=== PATIENT | male | born 1995 | race Caucasian/White ===

== ENCOUNTER 2018-11-04 22:22 | Emergency (ER) | payer MEDICAID, OTHER ==
[~2018-11-04] VITALS: Ht 177.8 cm; Wt 77.1 kg
[~2018-11-04 22:22] MED LIST: ALBU17AE3 IH; AMOX500C2 PO; AMOX500T2 PO; CETI10TA17 PO; CLON1TAB69 PO; CODE-54 PO; FAMO-119 PO; GUAN2TAB PO; HYDR-34 PO; LAMO100T69 PO; LAMO150T3 PO; LAMO200T14 PO; LITH300C PO; MINO100C2 PO; NAPR550T PO; OSLT75C PO; PALI6TAB2 PO; PRD20T PO; SULF1TAB7 PO; TOPI50TA2 PO; TRAZ-144 PO; TRIH2TAB2 PO
--- OUTSIDE RECORDS SUMMARY | 2018-11-04 22:27 | XMS REPORT ---
Author Author RANDI SHELIA Organization [facility] Address [address] [place] [address] Care Team Providers Care Flatwork Washer Name Role Phone SHELIA BRYAN Unavailable PROBLEMS Type Condition ICD9-CM Code [id number] Code Onset Dates Condition Status SNOMED Code Problem Attention deficit disorder of childhood with hyperactivity 314.01 Active 685988759 Problem Pain in joint, shoulder region 719.41 Active 803748915 Problem Autistic disorder, current or active state 299.00 Active 847795994 Problem Hypertrophy of breast 611.1 Active 730930719 Problem Nausea with vomiting 787.01 Active 30263419 Problem 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 39083372 Problem Routine general medical examination at health care facility V70.0 Active 749144928 Problem Pain in joint, forearm 719.43 Active 989105601 Problem Other acute sinusitis 461.8 Active 63054426 Problem Other diseases of nasal cavity and sinuses 478.19 Active 911133569 Problem Sebaceous cyst 706.2 Active 615122775 Problem Acute pharyngitis 462 Active 269951547 Problem Other and unspecified cerebral laceration and contusion, without mention of open intracranial wound, unspecified state of consciousness 851.80 Active 404370476 Problem Lipoma of other specified sites 214.8 Active 12335481 Problem Pilonidal cyst without mention of abscess 685.1 Active 34181466 Problem Bipolar disorder, unspecified 296.80 Active 75282009 Problem Intermittent explosive disorder 312.34 Active 17791505 Problem Other specified pervasive developmental disorders, current or active state 299.80 Active 66500830 Problem Anal or rectal pain 569.42 Active 49441209 Problem Oppositional defiant disorder 313.81 Active 86501261 ALLERGIES Substance Reaction Event Type Date Status N.K.D.A. Unknown Non Drug Allergy Aug, Unknown SOCIAL HISTORY No smoking Hx information available PLAN OF CARE VITAL SIGNS Height 67 in 2016-09-20 Weight 189.6 lbs 2016-09-20 Temperature 98.4 degrees Fahrenheit 2016-09-20 Heart Rate 88 bpm 2016-09-20 Respiratory Rate 18 2016-09-20 BMI 29.69 kg/m2 2016-09-20 Blood pressure systolic 122 mmHg 2016-09-20 Blood pressure diastolic 78 mmHg 2016-09-20 MEDICATIONS Medication Instructions Dosage Frequency Start Date End Date Duration Status Zithromax Z-Mike 250 MG Orally Once a day 2 tablets on the first day, then 1 tablet daily for 4 days 24h Aug, Sep, 5 day(s) Active RESULTS Name Result Date Reference Range STREP A (IN HOUSE) 2016-09-20 STREP A Positive Control + Lot # [id number] Exp date 01/2018 PROCEDURES Procedure Date Ordered Related Diagnosis Body Site Office Visit, Est Pt., Level 3 Sep 20, 2016 IMMUNIZATIONS No Known Immunizations
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
[2018-11-04] MEDS ORDERED: RX-OSELTAMIVIR 75 MG (TAMIFLU) BOX OF 10 PO STA (23:18)
[2018-11-04] MEDS ORDERED: BENZ100C18 PO (23:18)
[2018-11-04] MEDS ORDERED: GUAI1TBM19 PO (23:18)
--- NOTE | 2018-11-04 23:18 | ED Cough/URI ---
General Chief Complaint: Fever-Adult/Adol Stated Complaint: BACK PAIN/CHILLS/COUGH Allergies and Home Medications Allergies Coded Allergies: Tetracyclines (Verified Allergy, Mild, 12/08/15) clindamycin (Verified Allergy, Mild, 12/08/15) paliperidone (Verified Allergy, Mild, 12/08/15) risperidone (Unverified Allergy, Unknown, CAUSED BREAST TISSUE TO ENLARGE , 08/26/14) sulfamethoxazole (Unverified Allergy, Unknown, RASH, 08/26/14) trimethoprim (Unverified Allergy, Unknown, RASH, 08/26/14) Home Medications Amoxicillin 500 Mg Capsule, 500 MG PO TID Prescribed by: RADHA RONQUILLO on 06/19/16 0732 Hydrocodone Bit/Acetaminophen 1 Each Tablet, 1 EACH PO Q6H Prescribed by: RADHA RONQUILLO on 06/19/16 0732 Past Mkkyqad-Indzne-Lmdsgf Hx Patient Social History Recent Foreign Travel: No Contact w/Someone Who Travel: No Recent Hopitalizations: No Immunizations Up To Date Date of Influenza Vaccine: Jul 25, 2013 Past Medical History Asthma Heart Murmur Seizure Disorder, Traumatic Brain Injury Reproductive Disorders: No Polyps PTSD, Bipolar, Personality Disorder Family Medical History No Pertinent Family Hx Physical Exam Capillary Refill : Height: 5'10" Weight: 170lbs. oz. 77.745274ix; 25.06 BMI Method:Estimated Progress/Results/Core Measures Suspected Sepsis SIRS Temperature: Pulse: Respiratory Rate: Blood Pressure / Mean: Results/Orders Micro Results Microbiology 11/04/18 Influenza Types A,B Antigen ([facility]) - Final, Complete My Orders Orders - OSITO CHAVARRIA DO Influenza A And B Antigens (11/04/18 22:31) Vital Signs/I&O Capillary Refill : Departure Impression Primary Impression: Influenza-like illness Disposition: HOME, SELF-CARE Condition: Stable Departure-Patient Inst. Referrals: [facility] (PCP/Family) Primary Care Physician Patient Instructions: Cough, Runny Nose, and the Common Cold (DC), Flu, Adult ( DC), VIRAL RESP ILLNESS-ADULT Add. Discharge Instructions: LOTS OF CLEAR LIQUIDS--WATER, BROTH, JELLO, GATORADE TYLENOL 1 GRAM/ MOTRIN 800 MG 4 TIMES A DAY FOR PAIN OR FEVER FOLLOW UP WITH OF VERN IN 3-4 DAYS IF NO BETTER All discharge instructions reviewed with patient and/or family. Voiced understanding. Scripts Guaifenesin/Dextromethorphan (Mucinex Dm ER 1,200-60 mg Tab) 1 Each Tbmp.12hr 1 EACH PO BID for 10 Days, #20 EA Prov: OSITO CHAVARRIA DO 11/04/18 Benzonatate (TESSALON PERLES) 100 Mg Capsule 1-2 TAB PO TID for Cough, #30 CAP Prov: OSITO CHAVARRIA DO 11/04/18 OSITO CHAVARRIA DO Nov 04, 2018 23:18
[2018-11-04] MEDS ORDERED: RX-OSELTAMIVIR 75 MG (TAMIFLU) BOX OF 10 PO ONE (23:19)
[2018-11-04 23:25] VITALS: BP 138/92
== END 2018-11-04 23:26 | disposition home or self-care (01) ==
LOC: EDUNIT# 22:22 → ER 22:24
DX: J11.1 Influenza due to unidentified influenza virus with other respiratory manifestations (principal); J45.909 Unspecified asthma, uncomplicated; G40.909 Epilepsy, unspecified, not intractable, without status epilepticus; F43.10 Post-traumatic stress disorder, unspecified; F31.9 Bipolar disorder, unspecified; F60.9 Personality disorder, unspecified; Z87.820 Personal history of traumatic brain injury; Z86.010 Personal history of colon polyps; Z88.1 Allergy status to other antibiotic agents; Z88.2 Allergy status to sulfonamides; Z88.8 Allergy status to other drugs, medicaments and biological substances
CPT/HCPCS: 87804

== ENCOUNTER 2020-07-01 14:24 | Emergency (ER) | payer MEDICAID ==
[~2020-07-01 14:24] MED LIST changes: +BENZ100C18 PO; +GUAI1TBM19 PO; -MINO100C2 PO; +MINO100C5 PO
--- NOTE | 2020-07-01 14:40 | NUR ---
ATTEMPT TO CALL PT'S FRIENDS PHONE THAT PT WAS USING ET IT WENT STRAIT TO [employer]. WENT TO PARKING LOT AND SEARCHED AND PT COULD NOT BE FOUND. DR RONQUILLO NOTIFIED.
--- NOTE | 2020-07-01 14:50 | NUR ---
ATTEMPT TO CALL PT'S FRIEND CELL PHONE THAT WAS PROVIDED ET IT WENT TO VOICE MAIL.
== END 2020-07-01 14:40 | disposition left against medical advice (07) ==
LOC: EDUNIT# 14:24 → ER 14:25
DX: R05 Cough (principal); R50.9 Fever, unspecified; R06.02 Shortness of breath

== ENCOUNTER 2021-08-15 20:12 | Emergency (ER) | payer MEDICAID ==
[~2021-08-15] VITALS: Ht 170 cm; Wt 113.0 kg
--- NOTE | 2021-08-15 21:23 | ED Cough/URI ---
General Chief Complaint: COVID19 Suspect/Confirmed Stated Complaint: ORTIZ,COUGH,FEVER,SORE THROAT Nursing Triage Note: PERSISTANT COUGH/RUNNY NOSE X3 DAYS, REPORTS FEVER TONIGHT Source: patient Exam Limitations: no limitations History of Present Illness Date Seen by Provider: Aug 15, 2021 Time Seen by Provider: 21:04 Initial Comments This is a well-appearing 26-year-old male who presented to the ER with complaints of cough, nasal congestion, fever for the past 3 to 4 days. He did have his COVID vaccines in February of this year. No known ill contacts. Allergies and Home Medications Allergies Coded Allergies: Tetracyclines (Verified Allergy, Mild, 12/08/15) clindamycin (Verified Allergy, Mild, 12/08/15) paliperidone (Verified Allergy, Mild, 12/08/15) risperidone (Unverified Allergy, Unknown, CAUSED BREAST TISSUE TO ENLARGE, 08/26/14) sulfamethoxazole (Unverified Allergy, Unknown, RASH, 08/26/14) trimethoprim (Unverified Allergy, Unknown, RASH, 08/26/14) Patient Home Medication List Home Medication List Reviewed: Yes Methylprednisolone (Methylprednisolone Dose Pack) 4 Mg Tab.ds.pk, 4 MG PO UD Prescribed by: DWAYNE ANTHONY on 08/15/212157 Discontinued Medications Amoxicillin (Amoxicillin) 500 Mg Capsule, 500 MG PO TID Discontinued Reason: No Longer Taking Prescribed by: RADHA RONQUILLO on 06/19/16731 Last Action: Discontinued Benzonatate (Tessalon Perles) 100 Mg Capsule, 1-2 TAB PO TID Discontinued Reason: No Longer Taking Prescribed by: OSITO CHAVARRIA on 11/04/182317 Last Action: Discontinued Guaifenesin/Dextromethorphan (Mucinex Dm ER 1,200-60 mg Tab) 1 Each Tbmp.12hr, 1 EACH PO BID Discontinued Reason: No Longer Taking Prescribed by: OSITO CHAVARRIA on 11/04/182317 Last Action: Discontinued Hydrocodone Bit/Acetaminophen (Lortab 7.5 Mg Tablet) 1 Each Tablet, 1 EACH PO Q6H Discontinued Reason: No Longer Taking Prescribed by: RADHA RONQUILLO on 06/19/16731 Last Action: Discontinued Review of Systems Review of Systems Constitutional: see HPI EENTM: see HPI Respiratory: see HPI Cardiovascular: no symptoms reported Gastrointestinal: no symptoms reported Genitourinary: no symptoms reported Musculoskeletal: no symptoms reported Skin: no symptoms reported Psychiatric/Neurological: No Symptoms Reported Hematologic/Lymphatic: No Symptoms Reported Immunological/Allergic: no symptoms reported Past Etjuypt-Nzpzrp-Bhnqja Hx Patient Social History Tobacco Use?: Yes Substance use?: No Alcohol Use?: Yes Pt feels they are or have been: No Immunizations Up To Date Tetanus Booster (TDap): Unknown First/Initial COVID19 Vaccinat: 08/13 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: [employer] Seasonal Allergies Seasonal Allergies: No Past Medical History Surgery/Hospitalization HX: CHEST TUMOR REMOVED, TBI Surgeries: Yes (PILONIDAL CYST/ABSCESS REMOVED; LIPOMA FROM CHEST REMOVED) Respiratory: Yes Asthma Cardiac: Yes Heart Murmur Neurological: Yes Seizure Disorder, Traumatic Brain Injury Reproductive Disorders: No Genitourinary: No Gastrointestinal: Yes Polyps Musculoskeletal: No Endocrine: No HEENT: No Cancer: No Psychosocial: Yes Anxiety, PTSD, Bipolar, Personality Disorder Integumentary: No Blood Disorders: Yes Family Medical History No Pertinent Family Hx Physical Exam Vital Signs - First Documented 08/15/21 20:38 Temp 37.1 Pulse 107 Resp 16 B/P (MAP) 152/93 (112) Pulse Ox 96 O2 Delivery Room Air Capillary Refill : Less Than 3 Seconds Height: 5'10" Weight: 170lbs. oz. 77.940426sn; 39.00 BMI Method:Estimated General Appearance: WD/WN, no apparent distress Eyes: Bilateral Eye Normal Inspection, Bilateral Eye PERRL, Bilateral Eye EOMI HEENT: PERRL/EOMI, normal ENT inspection, pharynx normal Neck: non-tender, full range of motion, supple, normal inspection Respiratory: lungs clear, normal breath sounds, no respiratory distress, no accessory muscle use Cardiovascular: regular rate, rhythm, no murmur Gastrointestinal: normal bowel sounds, non tender, soft Neurologic/Psychiatric: no motor/sensory deficits, alert, normal mood/affect, oriented x 3 Skin: normal color, warm/dry Progress/Results/Core Measures Suspected Sepsis SIRS Temperature: Pulse: 107 Respiratory Rate: 16 Blood Pressure 152 /93 Mean: 112 Results/Orders Lab Results Laboratory Tests Test 08/15/21 20:47 Range/Units Influenza Type A (RT-PCR) Not Detected Not Detecte Influenza Type B (RT-PCR) Not Detected Not Detecte SARS-CoV-2 RNA (RT-PCR) Not Detected Not Detecte My Orders Orders - DWAYNE ANTHONY MICROPHONE BOOM OPERATOR Influenza A And B By Pcr (08/15/21 20:52) Covid 19 Inhouse Test (08/15/21 20:52) Vital Signs/I&O 08/15/21 08/15/21 20:38 22:00 Temp 37.1 37.0 Pulse 107 99 Resp 16 16 B/P (MAP) 152/93 (112) 136/95 Pulse Ox 96 96 O2 Delivery Room Air Room Air Capillary Refill : Less Than 3 Seconds Blood Pressure Mean: 112 Progress Note : Progress Note Patient examined and in no acute distress. Orders placed for Covid and influenza swab. His cousin whom he rode to ER with and visits every day is Covid positive. COVID neg. Will treat as COVID positive suspect. Discharge POC reviewed and he is agreeable with plan. Departure Impression Primary Impression: Suspected COVID-19 virus infection Disposition: HOME, SELF-CARE Condition: Stable Departure-Patient Inst. Decision time for Depature: 21:57 Referrals: [facility] (PCP/Family) Primary Care Physician Patient Instructions: COVID-19 ED, COVID-19 (DC) Add. Discharge Instructions: Plan: 1. Isolate at home until you are release by [facility]. 2. Take Steroids daily with food as directed. 3. May take Tylenol or Ibuprofen as needed for pain/fever. 4. Return if you develop any new, concerning, or worsening symptoms. All discharge instructions reviewed with patient and/or family. Voiced understanding. Scripts Methylprednisolone (Methylprednisolone Dose Pack) 4 Mg Tab.ds.pk 4 MG PO UD for 6 Days, #21 PKG 0 Refills PER DOSE PACK INSTRUCTIONS Prov: DWAYNE ANTHONY MICROPHONE BOOM OPERATOR 08/15/21 DWAYNE ANTHONY MICROPHONE BOOM OPERATOR Aug 15, 2021 21:23
[2021-08-15] MEDS ORDERED: METH4TAB10 PO (21:58)
[2021-08-15 22:00] VITALS: BP 136/95
== END 2021-08-15 22:03 | disposition home or self-care (01) ==
LOC: EDUNIT# 20:12 → ER 20:13
DX: Z20.822 Contact with and (suspected) exposure to COVID-19 (principal); J45.909 Unspecified asthma, uncomplicated; Z87.820 Personal history of traumatic brain injury; Z72.0 Tobacco use
CPT/HCPCS: 87636

== ENCOUNTER 2022-08-02 18:05 | Emergency (ER) | payer MEDICAID ==
[~2022-08-02] VITALS: Ht 172.7 cm; Wt 86.2 kg
[~2022-08-02 18:05] MED LIST changes: +METH4TAB10 PO
[2022-08-02 19:04] LABS: BASOPHILS % (AUTO) 0 % (0-10); NEUTROPHILS % (AUTO) 50 % (42-75)
[2022-08-02 19:06] LABS: EOSINOPHILS # (AUTO) 0.4 10^3/uL (0.0-0.3); EOSINOPHILS % (AUTO) 5 % (0-10); HEMATOCRIT 44 % (40-54); HEMOGLOBIN 15.7 g/dL (13.3-17.7); LYMPHOCYTES # (AUTO) 2.7 10^3/uL (1.0-4.0); LYMPHOCYTES % (AUTO) 35 % (12-44); MEAN CORPUSCULAR HEMOGLOBIN 34 pg (25-34); MEAN CORPUSCULAR HGB CONC 36 g/dL (32-36); MEAN CORPUSCULAR VOLUME 95 fL (80-99); MEAN PLATELET VOLUME 13.1 fL (9.0-12.2); MONOCYTES # (AUTO) 0.7 10^3/uL (0.0-1.0); MONOCYTES % (AUTO) 10 % (0-12); NEUTROPHILS # (AUTO) 3.9 10^3/uL (1.8-7.8); PLATELET COUNT 116 10^3/uL (130-400); WHITE BLOOD COUNT 7.7 10^3/uL (4.3-11.0)
[2022-08-02 19:06] LABS: BILIRUBIN,URINE NEGATIVE (NEGATIVE); CLARITY,URINE CLEAR; COLOR,URINE YELLOW; GLUCOSE, URINE (UA) NEGATIVE (NEGATIVE); KETONES,URINE NEGATIVE (NEGATIVE); LEUKOCYTE ESTERASE ,URINE TRACE (NEGATIVE); NITRITE,URINE NEGATIVE (NEGATIVE); PROTEIN,URINE TRACE (NEGATIVE)
[2022-08-02] MEDS ORDERED: HOLD METFORMIN - RECEIVED CONTRAST 20 ML VIAL IV SCH (19:15)
[2022-08-02] MEDS ORDERED: NS 100 ML (IVPB) BAG IV ONE (19:15)
[2022-08-02] MEDS ORDERED: CATHETER FLUSH 10 ML SYR IV PRN (19:15)
[2022-08-02] MEDS ORDERED: IOHEXOL 350 MG/ML 100 ML (OMNIPAQUE 350) VIAL IV ONE (19:15)
[2022-08-02 19:16] LABS: ALANINE AMINOTRANSFERASE 14 U/L (0-55); ALBUMIN 4.4 GM/DL (3.2-4.5); ALKALINE PHOSPHATASE 65 U/L (40-136); BILIRUBIN,TOTAL 0.3 MG/DL (0.1-1.0); BUN/CREATININE RATIO 11; CALCIUM 9.4 MG/DL (8.5-10.1); CARBON DIOXIDE 26 MMOL/L (21-32); CHLORIDE 107 MMOL/L (98-107); CREATININE SERUM 0.94 MG/DL (0.60-1.30); GFR ESTIMATED 115; GLUCOSE 96 MG/DL (70-105); MAGNESIUM 2.1 MG/DL (1.6-2.4); POTASSIUM 3.7 MMOL/L (3.6-5.0); SODIUM 142 MMOL/L (135-145); TOTAL PROTEIN 7.2 GM/DL (6.4-8.2)
[2022-08-02 19:21] LABS: BACTERIA,URINE FEW /HPF
[2022-08-02 19:23] LABS: AMPHETAMINE SCREEN, URINE NEGATIVE (NEGATIVE); BARBITURATE SCREEN URINE NEGATIVE (NEGATIVE); BENZODIAZEPINES SCREEN URINE NEGATIVE (NEGATIVE); CANNABINOID SCREEN, URINE POSITIVE (NEGATIVE); COCAINE SCREEN URINE NEGATIVE (NEGATIVE); METHADONE STAT NEGATIVE (NEGATIVE); OPIATE SCREEN URINE NEGATIVE (NEGATIVE); OXYCODONE STAT NEGATIVE (NEGATIVE); PROPOXYPHENE STAT NEGATIVE (NEGATIVE); TRICYCLIC ANTIDEPRESSANTS SCRE NEGATIVE (NEGATIVE)
[2022-08-02 19:36] LABS: TSH (THYROID ANALYZER) 0.65 UIU/ML (0.35-4.94)
--- NOTE | 2022-08-02 19:40 | Diagnostic Imaging Report ---
INDICATION: Headache and neck region mass. TECHNIQUE: CT imaging of the head is performed prior to and after intravenous administration of iodinated contrast. Contrast-enhanced CT imaging of the neck is also performed. Automatic exposure controls were utilized to keep dose as low as reasonably achievable. CT HEAD: FINDINGS: Ventricles and sulci remain stable. There is continued asymmetry of lateral ventricles with possible coarctation on the left and dilatation on the right. Otherwise, there is no evidence of shift of midline. There is no hemorrhage. There is no abnormal contrast enhancement. Calvarium is intact, and the visualized paranasal sinuses are clear. IMPRESSION: Unremarkable CT scan of the head without and with contrast. CT NECK: FINDINGS: There is good opacification of great vessels of the neck. Parotid and submandibular salivary glands are unremarkable. There are occasional mildly prominent deep cervical lymph nodes which may be slightly greater on the right. No definite pathologically enlarged adenopathy is seen. Thyroid gland has a normal appearance. There is no evidence of airway abnormality. There are periapical lucencies involving right mandibular teeth with caries. There is no evidence of organized fluid collection. IMPRESSION: No acute abnormality or mass is seen within the neck. Dictated by: Dictated on workstation # [id number]
--- NOTE | 2022-08-02 20:11 | ED General ---
General Chief Complaint: Head/Cervical Problems Stated Complaint: BUMP ON HEAD Nursing Triage Note: pt ambulatory to room with pt mother. pt states he has "off and on disorientation" and headaches "almost every day." pt states all this started approx 3 years ago. pt reports having a bump on the nape of his neck that "grows and shrinks" that prevents him from moving his neck downward. pt reports hx of neurologic problems but states he had an increased episode of disorientation this evening when he "peed on the toilet lid instead of lifting the lid up." Source of Information: Patient, Family Exam Limitations: No Limitations History of Present Illness Date Seen by Provider: Aug 02, 2022 Allergies and Home Medications Allergies Coded Allergies: Tetracyclines (Verified Allergy, Mild, 12/08/15) clindamycin (Verified Allergy, Mild, 12/08/15) paliperidone (Verified Allergy, Mild, 12/08/15) risperidone (Unverified Allergy, Unknown, CAUSED BREAST TISSUE TO ENLARGE, 08/26/14) sulfamethoxazole (Unverified Allergy, Unknown, RASH, 08/26/14) trimethoprim (Unverified Allergy, Unknown, RASH, 08/26/14) Patient Home Medication List Methylprednisolone (Methylprednisolone Dose Pack) 4 Mg Tab.ds.pk, 4 MG PO UD Prescribed by: DWAYNE ANTHONY on 08/15/212157 Past Yzwdpib-Ejxpgp-Rkdacl Hx Patient Social History Tobacco Use?: Yes Smoking Status: Current Everyday Smoker Use of E-Cig and/or Vaping dev: Yes E-Cig or Vaping type used: Nicotine, CBD Use of E-Cig and/or Vaping Danish: Current Everyday User Substance use?: No Alcohol Use?: Yes Alcohol Frequency: Once in a while Immunizations Up To Date Tetanus Booster (TDap): Unknown Influenza Vaccine Up-to-Date: No; Not Current First/Initial COVID19 Vaccinat: 08/13 Seasonal Allergies Seasonal Allergies: No Past Medical History Surgery/Hospitalization HX: CHEST TUMOR REMOVED, TBI Surgeries: Yes (PILONIDAL CYST/ABSCESS REMOVED; LIPOMA FROM CHEST REMOVED) Respiratory: Yes Asthma Cardiac: Yes Heart Murmur Neurological: Yes Seizure Disorder, Traumatic Brain Injury Reproductive Disorders: No Genitourinary: No Gastrointestinal: Yes Polyps Musculoskeletal: No Endocrine: No HEENT: No Cancer: No Psychosocial: Yes Anxiety, PTSD, Bipolar, Personality Disorder Integumentary: No Blood Disorders: Yes Family Medical History No Pertinent Family Hx Physical Exam Vital Signs Vital Signs - First Documented 08/02/22 18:10 Temp 37.0 Pulse 102 Resp 20 B/P (MAP) 133/93 (106) Pulse Ox 97 Capillary Refill : Height, Weight, BMI Height: 5'10" Weight: 170lbs. oz. 77.961409wa; 28.00 BMI Method:Estimated Progress/Results/Core Measures Suspected Sepsis SIRS Temperature: Pulse: 102 Respiratory Rate: 20 Laboratory Tests 08/02/22 18:50: White Blood Count 7.7 Blood Pressure 133 /93 Mean: 106 Laboratory Tests 08/02/22 18:50: Creatinine 0.94, Platelet Count 116L, Total Bilirubin 0.3 Results/Orders Lab Results Laboratory Tests Test 08/02/22 18:50 08/02/22 18:59 Range/Units White Blood Count 7.7 4.3-11.0 10^3/uL Red Blood Count 4.63 4.30-5.52 10^6/uL Hemoglobin 15.7 13.3-17.7 g/dL Hematocrit 44 40-54 % Mean Corpuscular Volume 95 80-99 fL Mean Corpuscular Hemoglobin 34 25-34 pg Mean Corpuscular Hemoglobin Concent 36 32-36 g/dL Red Cell Distribution Width 11.2 10.0-14.5 % Platelet Count 116 L 130-400 10^3/uL Mean Platelet Volume 13.1 H 9.0-12.2 fL Immature Granulocyte % (Auto) 0 % Neutrophils (%) (Auto) 50 42-75 % Lymphocytes (%) (Auto) 35 12-44 % Monocytes (%) (Auto) 10 0-12 % Eosinophils (%) (Auto) 5 0-10 % Basophils (%) (Auto) 0 0-10 % Neutrophils # (Auto) 3.9 1.8-7.8 10^3/uL Lymphocytes # (Auto) 2.7 1.0-4.0 10^3/uL Monocytes # (Auto) 0.7 0.0-1.0 10^3/uL Eosinophils # (Auto) 0.4 H 0.0-0.3 10^3/uL Basophils # (Auto) 0.0 0.0-0.1 10^3/uL Immature Granulocyte # (Auto) 0.0 0.0-0.1 10^3/uL Percent Immature Platelet Fraction 17.6 H 0.0-7.6 % Sodium Level 142 135-145 MMOL/L Potassium Level 3.7 3.6-5.0 MMOL/L Chloride Level 107 98-107 MMOL/L Carbon Dioxide Level 26 21-32 MMOL/L Anion Gap 9 5-14 MMOL/L Blood Urea Nitrogen 10 7-18 MG/DL Creatinine 0.94 0.60-1.30 MG/DL Estimat Glomerular Filtration Rate 115 BUN/Creatinine Ratio 11 Glucose Level 96 70-105 MG/DL Calcium Level 9.4 8.5-10.1 MG/DL Corrected Calcium 9.1 8.5-10.1 MG/DL Magnesium Level 2.1 1.6-2.4 MG/DL Total Bilirubin 0.3 0.1-1.0 MG/DL Aspartate Amino Transf (AST/SGOT) 15 5-34 U/L Alanine Aminotransferase (ALT/SGPT) 14 0-55 U/L Alkaline Phosphatase 65 40-136 U/L Total Protein 7.2 6.4-8.2 GM/DL Albumin 4.4 3.2-4.5 GM/DL TSH [place] Testing 0.65 0.35-4.94 UIU/ML Serum Alcohol < 10 <10 MG/DL Urine Color YELLOW Urine Clarity CLEAR Urine pH 6.0 5-9 Urine Specific [place] >=1.030 1.016-1.022 Urine Protein TRACE H NEGATIVE Urine Glucose (UA) NEGATIVE NEGATIVE Urine Ketones NEGATIVE NEGATIVE Urine Nitrite NEGATIVE NEGATIVE Urine Bilirubin NEGATIVE NEGATIVE Urine Urobilinogen 1.0 < = 1.0 MG/DL Urine Leukocyte Esterase TRACE H NEGATIVE Urine RBC (Auto) NEGATIVE NEGATIVE Urine RBC NONE /HPF Urine WBC 2-5 /HPF Urine Squamous Epithelial Cells NONE /HPF Urine Crystals NONE /LPF Urine Bacteria FEW H /HPF Urine Casts NONE /LPF Urine Mucus MODERATE H /LPF Urine Culture Indicated YES Urine Opiates Screen NEGATIVE NEGATIVE Urine Oxycodone Screen NEGATIVE NEGATIVE Urine Methadone Screen NEGATIVE NEGATIVE Urine Propoxyphene Screen NEGATIVE NEGATIVE Urine Barbiturates Screen NEGATIVE NEGATIVE Ur Tricyclic Antidepressants Screen NEGATIVE NEGATIVE Urine Phencyclidine Screen NEGATIVE NEGATIVE Urine Amphetamines Screen NEGATIVE NEGATIVE Urine Methamphetamines Screen NEGATIVE NEGATIVE Urine Benzodiazepines Screen NEGATIVE NEGATIVE Urine Cocaine Screen NEGATIVE NEGATIVE Urine Cannabinoids Screen POSITIVE H NEGATIVE My Orders Orders - ANT AGOSTO MD Alcohol (08/02/22 18:35) Cbc With Automated Diff (08/02/22 18:35) Comprehensive Metabolic Panel (08/02/22 18:35) Drug Screen Stat (Urine) (08/02/22 18:35) Magnesium (08/02/22 18:35) Thyroid Analyzer (08/02/22 18:35) Ua Culture If Indicated (08/02/22 18:35) Ed Iv/Invasive Line Start (08/02/22 18:35) Ct Head W Wo/Neck W (08/02/22 18:49) Iohexol Injection (Omnipaque 350 Mg/Ml 1 (08/02/22 19:15) Received Contrast (Hold Metformin- Contr (08/02/22 19:15) Sodium Chloride Flush (Catheter Flush Sy (08/02/22 19:15) Ns (Ivpb) (Sodium Chloride 0.9% Ivpb Bag (08/02/22 19:15) Urine Culture (08/02/22 18:59) Chlamydia Trachomatis Urine (08/02/22 19:26) Neis Demian Dna Urine Test (08/02/22 19:26) Medications Given in ED Current Medications Medications Dose Ordered Sig/Helen Route Start Time Stop Time Status Last Admin Dose Admin Iohexol 100 ml ONCE ONCE IV 08/02/22 19:15 08/02/22 19:16 DC 08/02/22 19:27 80 ML Sodium Chloride 10 ml NEEDED PRN IV 08/02/22 19:15 08/02/22 19:27 10 ML Sodium Chloride 100 ml ONCE ONCE IV 08/02/22 19:15 08/02/22 19:16 DC 08/02/22 19:27 80 ML Vital Signs/I&O 08/02/22 18:10 Temp 37.0 Pulse 102 Resp 20 B/P (MAP) 133/93 (106) Pulse Ox 97 Capillary Refill : Blood Pressure Mean: 106 Departure Impression Primary Impression: Confusion Additional Impressions: Recurrent headache Thrombocytopenia Soft tissue mass History of traumatic brain injury Disposition: 01 HOME, SELF-CARE Condition: Stable Departure-Patient Inst. Decision time for Depature: 20:06 Referrals: [facility] (PCP/Family) Primary Care Physician Patient Instructions: Headache, Adult, Traumatic Brain Injury Add. Discharge Instructions: The lump on your neck was not seen on CT imaging. This may be a sebaceous cyst, lipoma, or other lesion that is not differentiated from the surrounding tissue. Please follow-up with Dr. Monsalve for further evaluation. There were no acute abnormalities seen on your imaging of the head or neck. Further follow-up with a primary care provider is warranted with possible referral to a neurologist to further evaluate your symptoms. Your platelet count was lower than normal today. This should be tracked by a primary care provider. Please return to the emergency room if you ever have any unusual bleeding which may be precipitated by low platelet counts. There were a few white blood cells in your urine specimen. The urine is being cultured. You should follow-up on results of your urine culture with a primary care provider if you do not hear directly from the emergency room about results. Avoid use of any mind altering substances including marijuana products, alcohol, CBD, etc. as use of these substances may convoluted the evaluation of your other symptoms. Return to the emergency room if you have any worsening of the symptoms despite following these instructions. All discharge instructions reviewed with patient and/or family. Voiced understanding. Copy Copies To 1: LOREN MONSALVE MD, JOSHUA T MD Aug 02, 2022 20:11
[2022-08-02 20:25] VITALS: BP 117/79
== END 2022-08-02 20:25 | disposition home or self-care (01) ==
LOC: EDUNIT# 18:05 → ER 18:06
DX: R41.0 Disorientation, unspecified (principal); D69.6 Thrombocytopenia, unspecified; M79.9 Soft tissue disorder, unspecified; F17.290 Nicotine dependence, other tobacco product, uncomplicated; Z87.820 Personal history of traumatic brain injury; Z28.311 Partially vaccinated for COVID-19
CPT/HCPCS: 70470; 70491; 80053; 80306; 81000; 83735; 84443; 85025; 87088; 87491; 87591; 99283; G0480; 36415; 80320

== ENCOUNTER → 2022-08-30 | Outpatient (CLI) | payer MEDICAID ==
[~2022-08-30] VITALS: Ht 172.7 cm; Wt 85.5 kg
[~2022-08-30] MED LIST changes: +ACHD5005 PO
== END | disposition home or self-care (01) ==
LOC: PREOP 05:31
PROVIDERS: ATTEND Surgery
DX: Z01.818 Encounter for other preprocedural examination (principal)

== ENCOUNTER 2022-08-31 11:43 | Day surgery (SDC) | payer MEDICAID ==
[2022-08-31] VITALS (9 sets, daily range): BP systolic 112–146; BP diastolic 59–92
[~2022-08-31 11:43] MED LIST changes: -ACHD5005 PO
[2022-08-31] MEDS ORDERED: BUP/EPI 0.25% 1:200,000 (MARCAINE) 30 ML VIAL ONE (12:18)
--- NOTE | 2022-08-31 12:19 | Progress Note-Pre Operative ---
Pre-Operative Progress Note Date H&P Reviewed: Aug 31, 2022 Time H&P Reviewed: 12:15 History & Physical: H&P Reviewed, Patient Examed Pre-Operative Diagnosis: Symptomatic lipoma posterior neck ROBERT MORA APRN Aug 31, 2022 12:19
[2022-08-31] MEDS ORDERED: ACHD5005 PO (12:21)
--- NOTE | 2022-08-31 12:21 | Discharge Inst-Surgical ---
D/C Lap Instructions-KIDO Reconcile Patient Problems Problems Reviewed?: Yes New, Converted, or Re-Newed RX: RX on Chart Follow Up Appt in 2 weeks Activity as tolerated No driving for 24 hours No driving while on pain medications Regular Diet Symptoms to Report: Fever over 101 degree F, Nausea/Vomiting Infection Signs and Symptoms to report: Increased redness, Foul odor of wound, Increased drainage Bathing instructions: May shower Operative Area Clean/Dry; Keep incision clean/dry If any problems/questions: Contact your physician or go to Emergency Room ROBERT MORA APRN Aug 31, 2022 12:21
[2022-08-31] MEDS ORDERED: HYDROcodone/APAP 5 MG/325 MG (LORTAB) TAB PO ONE (12:30)
[2022-08-31] MEDS ORDERED: morphine INJ 10 MG/ML 1ML (SYR OR VIAL) IVP PRN (12:30)
[2022-08-31] MEDS ORDERED: ONDANSETRON 4 MG/2 ML (SDV) Z0FRAN IVP PRN ×2 (12:30→14:15)
[2022-08-31] MEDS ORDERED: ACETAMINOPHEN 325 MG TABLET PO PRN (12:30)
[2022-08-31] MEDS ORDERED: ceFAZolin INJECTION 2,000 MG in NS (IVPB) 50 ML IV ONE (12:45)
[2022-08-31] MEDS ORDERED: LACTATED RINGERS 1,000 ML IV PRN (12:45)
[2022-08-31] MEDS ORDERED: MIDAZOLAM 2 MG/2 ML (VERSED) VIAL ONE (13:31)
[2022-08-31] MEDS ORDERED: ONDANSETRON 4 MG/2 ML (SDV) Z0FRAN ONE (13:48)
[2022-08-31] MEDS ORDERED: proPOfol 200 MG/20 ML (DIPRIVAN) VIAL IV ONE (13:48)
[2022-08-31] MEDS ORDERED: SEVOFLURANE (ULTANE) 15 ML INHAL SOLN ONE (13:58)
--- NOTE | 2022-08-31 14:09 | Progress Note-Post Operative ---
Post-Operative Progess Note Surgeon (s)/Hall Coordinator (s) Surgeon LOREN MONSALVE MD Hall Coordinator: benjamín roy BUDGET ENGINEER Pre-Operative Diagnosis Symptomatic lipoma posterior neck Post-Operative Diagnosis same, subfascial (2x2cm) Procedure & Operative Findings Date of Procedure 08/31/22 Procedure Performed/Findings excision subfascial post neck lesion Anesthesia Type general LMA Estimated Blood Loss Estimated blood loss (mL): minimal Specimens/Packing Specimens Removed neck lesion LOREN MONSALVE MD Aug 31, 2022 14:09
--- NOTE | 2022-08-31 14:13 | Anesthesia-General Post-Op ---
General Patient Condition Mental Status/LOC: Same as Preop Cardiovascular: Satisfactory Nausea/Vomiting: Absent Respiratory: Satisfactory Pain: Controlled Complications: Absent Post Op Complications Complications None Follow Up Care/Instructions Patient Instructions None needed. Anesthesia/Patient Condition Patient Condition Patient is doing well, no complaints, stable vital signs, no apparent adverse anesthesia problems. No complications reported per nursing. NERY KWAN CRNA Aug 31, 2022 14:13
[2022-08-31] MEDS ORDERED: fentaNYL INJ 100 MCG/2 ML AMP IVP ONE (14:15)
--- NOTE | 2022-08-31 23:09 | OPERATIVE REPORT ---
DATE OF SERVICE: 08/31/2022 PREOPERATIVE DIAGNOSIS: Symptomatic superior and posterior neck lipoma. POSTOPERATIVE DIAGNOSIS: Subfascial lesion, approximately 2 x 2 cm in size. PROCEDURE: Excision of subfascial lesion, posterior neck, 2 x 2 cm in size. SURGEON: Loren Monsalve MD SUPERVISOR GROWER: Ross Castrejon APRN ANESTHESIA: Laryngeal mask airway with local. ESTIMATED BLOOD LOSS: Minimal. FINDINGS: Lesion appeared to be subfascial benign lipoma. DISPOSITION: The patient tolerated the procedure well. INDICATIONS: The patient is a 27-year-old male known to us. We had seen him in August 2014 for symptomatic lesion of the left upper chest, which was excised on 09/03/2014 which came back as a chest lipoma, 3 x 2 cm in size. He states that lesion has been around for the past 4 years at the posterior and superior aspect of the neck, which has gotten larger in size and become painful. Upon examination, this appeared to be some form of a deep subfascial lipoma. This gentleman does have a history of bipolar disorder and is currently not on any medications and self-medicating with alcohol as well as other substance. DESCRIPTION OF PROCEDURE: The patient was brought to the operating room, laid in left lateral decubitus position. After adequate IV pain and sedative medications and general laryngeal mask airway intubation, the patient was placed in the left lateral decubitus position. The neck and back were then prepped and draped in standard surgical fashion. 1% lidocaine with epinephrine was then used to anesthetize the overlying skin to the lesion. The subcutaneous tissue was then opened as was the fascia and an organized tissue, which appeared to be adipose tissue and a benign lipoma, which was subfascial identified. Using a tru clamp the lesion was retracted anteriorly and then we proceeded to dissect around the entirety of the lesion using blunt dissection as well as electrocautery with visualization and good hemostasis. The good hemostasis was observed and the specimen sent to pathology. The fascia was then closed using 3-0 Vicryl interrupted sutures. The skin was closed using 4-0 Monocryl running subcuticular suture. Wound was then cleaned and covered with Dermabond. The patient tolerated the procedure well. We will start IV and oral pain medications as well as clear liquid diet and once he is tolerating clears with good pain control with oral pain medications and ambulating well, we will discharge him home. We will have him follow up in approximately 2 weeks to discuss the pathology results as well as to evaluate the wound. Job ID: [id number] DocumentID: [id number] Dictated Date: 08/31/2022 13:59:26 It Web Development Consultant Date: 08/31/2022 23:07:00 Dictated By: LOREN MONSALVE MD MTDD
== END 2022-08-31 15:55 | disposition home or self-care (01) ==
LOC: SDC 11:43
PROVIDERS: ATTEND Surgery
DX: D17.0 Benign lipomatous neoplasm of skin and subcutaneous tissue of head, face and neck (principal); F17.210 Nicotine dependence, cigarettes, uncomplicated
CPT/HCPCS: 87081; 88304